=== PATIENT | female | born 1995 | race Caucasian/White ===

== ENCOUNTER 2019-07-07 | Emergency (ER) | payer SELFPAY ==
[2019-07-07] MEDS ORDERED: ULTRAM50 M1 PO (19:00)
== END 2019-07-07 19:16 | disposition home or self-care (01) | DRG 563 ==
DX: S93.601A Unspecified sprain of right foot, initial encounter (principal); W22.8XXA Striking against or struck by other objects, initial encounter; Y92.009 Unspecified place in unspecified non-institutional (private) residence as the place of occurrence of the external cause

== ENCOUNTER 2020-04-15 19:27 | Emergency (ER) | payer SELFPAY ==
[~2020-04-15] VITALS: Ht 165.1 cm; Wt 149.0 kg
[~2020-04-15 19:27] MED LIST: ULTRAM50 M1 PO
[2020-04-15] MEDS ORDERED: MEDICAL MARIJUANA (19:55)
[2020-04-15 20:03] LABS: HEMATOCRIT 39.2 % (37.0-47.0); HEMOGLOBIN 12.2 g/dl (12.0-16.0); IMMATURE GRANULOCYTES 0.3 % (0.0-5.0); MEAN CELL VOLUME 87.7 fL CALC (80.0-100.0); MEAN CORPUSCULAR HGB 27.3 pG CALC (26.0-32.0); MEAN CORPUSCULAR HGB CONC 31.1 g/dL CAL (32.0-36.0); NEUT# 5.52 thou/uL (2.00-7.15); RED BLOOD COUNT 4.47 mill/uL (4.20-5.60); RED CELL DISTRI WIDTH 13.2 % (11.5-15.5)
[2020-04-15 20:21] LABS: ALBUMIN 4.1 g/dL (3.2-5.0); ALKALINE PHOSPHATASE 60 u/l (38-126); ANION GAP 12 (6-22 (CALC)); BILIRUBIN, TOTAL 0.5 mg/dL (0.0-1.4); BUN 8 mg/dL (7-17); BUN/CREATININE RATIO 10 (12-20 (CALC)); CARBON DIOXIDE 27 mmol/l (22-30); CHLORIDE 106 mmol/l (95-108); CREATININE 0.9 mg/dL (0.5-1.0); GFR > 60 ML/MIN (>=60 (CALC)); GFR FOR AFR.AMER. > 60 ML/MIN (>=60 (CALC)); SGOT/AST 16 u/l (14-36); SODIUM 141 mmol/l (137-146); TOTAL PROTEIN 7.4 g/dL (6.3-8.2)
[2020-04-15 21:00] VITALS: BP 112/68
[2020-04-15] MEDS ORDERED: INDOMETHACIN75 MG PO (21:03)
[2020-04-15] MEDS ORDERED: COLCHICINE0.6 M2 PO (21:03)
== END 2020-04-15 21:14 | disposition home or self-care (01) | DRG 554 ==
LOC: ED 19:27
PROVIDERS: Family Medicine
DX: M10.071 Idiopathic gout, right ankle and foot (principal)

== ENCOUNTER 2020-06-24 17:13 | Emergency (ER) | payer SELFPAY ==
[~2020-06-24] VITALS: Ht 165.1 cm; Wt 120.0 kg
[~2020-06-24 17:13] MED LIST changes: +COLCHICINE0.6 M2 PO; +INDOMETHACIN75 MG PO; +MEDICAL MARIJUANA
[2020-06-24 20:17] LABS: HEMATOCRIT 39.9 % (37.0-47.0); HEMOGLOBIN 12.9 g/dl (12.0-16.0); IMMATURE GRANULOCYTES 0.5 % (0.0-5.0); MEAN CELL VOLUME 85.1 fL CALC (80.0-100.0); MEAN CORPUSCULAR HGB 27.5 pG CALC (26.0-32.0); MEAN CORPUSCULAR HGB CONC 32.3 g/dL CAL (32.0-36.0); NEUT# 6.14 thou/uL (2.00-7.15); RED BLOOD COUNT 4.69 mill/uL (4.20-5.60); RED CELL DISTRI WIDTH 14.5 % (11.5-15.5)
[2020-06-24 20:37] LABS: ALBUMIN 4.6 g/dL (3.2-5.0); ALKALINE PHOSPHATASE 64 u/l (38-126); AMYLASE 56 u/l (30-110); BUN 7 mg/dL (7-17); BUN/CREATININE RATIO 8 (12-20 (CALC)); CARBON DIOXIDE 30 mmol/l (22-30); CHLORIDE 102 mmol/l (95-108); CREATININE 0.9 mg/dL (0.5-1.0); GFR > 60 ML/MIN (>=60 (CALC)); GFR FOR AFR.AMER. > 60 ML/MIN (>=60 (CALC)); LIPASE 95 u/l (23-300); SODIUM 141 mmol/l (137-146); TOTAL PROTEIN 8.3 g/dL (6.3-8.2)
[2020-06-24 20:39] LABS: ANION GAP 12 (6-22 (CALC)); BILIRUBIN, TOTAL 0.9 mg/dL (0.0-1.4); POTASSIUM 2.8 mmol/l (3.5-5.1); SGOT/AST 94 u/l (14-36)
[2020-06-24] MEDS ORDERED: PHENERGAN25 MG/TAB PO (23:47)
[2020-06-24] MEDS ORDERED: PROTONIX40 MG PO (23:47)
[2020-06-25 00:45] VITALS: BP 150/86
== END 2020-06-25 00:55 | disposition home or self-care (01) | DRG 392 ==
LOC: ED 17:13
PROVIDERS: Emergency Medicine
DX: R10.13 Epigastric pain (principal); R11.2 Nausea with vomiting, unspecified; K50.90 Crohn's disease, unspecified, without complications; M10.9 Gout, unspecified
CPT/HCPCS: S0164

== ENCOUNTER 2020-12-22 11:12 | Emergency (ER) | payer SELFPAY ==
[~2020-12-22] VITALS: Ht 165.1 cm; Wt 131.0 kg
[~2020-12-22 11:12] MED LIST changes: +PHENERGAN25 MG/TAB PO; +PROTONIX40 MG PO
[2020-12-22 12:49] LABS: IMMATURE GRANULOCYTES 0.1 % (0.0-5.0); MEAN CELL VOLUME 89.8 fL CALC (80.0-100.0); MEAN CORPUSCULAR HGB 28.4 pG CALC (26.0-32.0); MEAN CORPUSCULAR HGB CONC 31.6 g/dL CAL (32.0-36.0); NEUT# 5.14 thou/uL (2.00-7.15); RED BLOOD COUNT 4.23 mill/uL (4.20-5.60); RED CELL DISTRI WIDTH 13.7 % (11.5-15.5)
[2020-12-22 13:03] LABS: ALKALINE PHOSPHATASE 50 u/l (38-126); BUN 5 mg/dL (7-17); BUN/CREATININE RATIO 8 (12-20 (CALC)); CARBON DIOXIDE 27 mmol/l (22-30); CHLORIDE 106 mmol/l (95-108); CREATININE 0.7 mg/dL (0.5-1.0); GFR > 60 ML/MIN (>=60 (CALC)); GFR FOR AFR.AMER. > 60 ML/MIN (>=60 (CALC)); LIPASE 63 u/l (23-300); SODIUM 140 mmol/l (137-146); TOTAL PROTEIN 7.2 g/dL (6.3-8.2)
[2020-12-22 13:04] LABS: ANION GAP 11 (6-22 (CALC)); BILIRUBIN, TOTAL 0.4 mg/dL (0.0-1.4); POTASSIUM 3.7 mmol/l (3.5-5.1); SGOT/AST 23 u/l (14-36)
[2020-12-22] MEDS ORDERED: CARAFATE1 GM/10 M1 PO (14:52)
[2020-12-22] MEDS ORDERED: OMEPRAZOLE DR40 MG PO (14:52)
[2020-12-22 15:02] VITALS: BP 131/79
== END 2020-12-22 15:03 | disposition home or self-care (01) | DRG 392 ==
LOC: ED 11:12
PROVIDERS: Family Medicine
DX: K21.9 Gastro-esophageal reflux disease without esophagitis (principal); K50.90 Crohn's disease, unspecified, without complications; E66.9 Obesity, unspecified; M10.9 Gout, unspecified; Z20.822 Contact with and (suspected) exposure to COVID-19

== ENCOUNTER 2021-04-21 12:36 | Emergency (ER) | payer SELFPAY ==
[~2021-04-21] VITALS: Ht 165.1 cm; Wt 115.0 kg
[~2021-04-21 12:36] MED LIST changes: +CARAFATE1 GM/10 M1 PO; +OMEPRAZOLE DR40 MG PO
[2021-04-21 17:15] LABS: HEMATOCRIT 38.1 % (37.0-47.0); HEMOGLOBIN 12.3 g/dl (12.0-16.0); IMMATURE GRANULOCYTES 0.2 % (0.0-5.0); MEAN CELL VOLUME 90.7 fL CALC (80.0-100.0); MEAN CORPUSCULAR HGB 29.3 pG CALC (26.0-32.0); MEAN CORPUSCULAR HGB CONC 32.3 g/dL CAL (32.0-36.0); NEUT# 9.12 thou/uL (2.00-7.15); RED BLOOD COUNT 4.2 mill/uL (4.20-5.60); RED CELL DISTRI WIDTH 13.2 % (11.5-15.5)
[2021-04-21 17:24] LABS: ALBUMIN 4.4 g/dL (3.2-5.0); ALKALINE PHOSPHATASE 61 u/l (38-126); AMYLASE 65 u/l (30-110); ANION GAP 17 (6-22 (CALC)); BUN 8 mg/dL (7-17); BUN/CREATININE RATIO 12 (12-20 (CALC)); CARBON DIOXIDE 23 mmol/l (22-30); CHLORIDE 106 mmol/l (95-108); CREATININE 0.7 mg/dL (0.5-1.0); GFR > 60 ML/MIN (>=60 (CALC)); GFR FOR AFR.AMER. > 60 ML/MIN (>=60 (CALC)); LIPASE 54 u/l (23-300); POTASSIUM 3.8 mmol/l (3.5-5.1); SGOT/AST 19 u/l (14-36); SODIUM 143 mmol/l (137-146); TOTAL PROTEIN 8.2 g/dL (6.3-8.2)
[2021-04-21 17:25] LABS: BILIRUBIN, TOTAL 0.7 mg/dL (0.0-1.4)
[2021-04-21 17:26] LABS: HCG SERUM/URINE (NEG/POS) NEGATIVE (NEGATIVE)
[2021-04-21 17:35] LABS: MYOGLOBIN 27 ng/mL (0 - 62)
[2021-04-21] MEDS ORDERED: ULTRAM50 M1 PO (19:29)
[2021-04-21] MEDS ORDERED: PREVACID30 M3 PO (19:29)
[2021-04-21] MEDS ORDERED: ONDANSETRON4 MG PO (19:29)
[2021-04-21 19:54] VITALS: BP 134/84
== END 2021-04-21 19:50 | disposition home or self-care (01) | DRG 387 ==
LOC: ED 12:36
PROVIDERS: Emergency Medicine
DX: K50.90 Crohn's disease, unspecified, without complications (principal); K29.70 Gastritis, unspecified, without bleeding; M10.9 Gout, unspecified; Z20.822 Contact with and (suspected) exposure to COVID-19
CPT/HCPCS: Q9967; S0164

== ENCOUNTER 2021-04-24 20:52 | Observation (INO) | payer SELFPAY ==
[~2021-04-24] VITALS: Ht 12.7 cm; Wt 108.0 kg
[~2021-04-24 20:52] MED LIST changes: +ONDANSETRON4 MG PO; +PREVACID30 M3 PO
[2021-04-24 21:38] LABS: HEMATOCRIT 37.1 % (37.0-47.0); HEMOGLOBIN 12.2 g/dl (12.0-16.0); IMMATURE GRANULOCYTES 0.1 % (0.0-5.0); MEAN CELL VOLUME 89.2 fL CALC (80.0-100.0); MEAN CORPUSCULAR HGB 29.3 pG CALC (26.0-32.0); MEAN CORPUSCULAR HGB CONC 32.9 g/dL CAL (32.0-36.0); NEUT# 7.71 thou/uL (2.00-7.15); RED BLOOD COUNT 4.16 mill/uL (4.20-5.60); RED CELL DISTRI WIDTH 13.2 % (11.5-15.5)
[2021-04-24 21:45] LABS: ALKALINE PHOSPHATASE 53 u/l (38-126); AMYLASE 54 u/l (30-110); ANION GAP 13 (6-22 (CALC)); BILIRUBIN, TOTAL 0.9 mg/dL (0.0-1.4); BUN 6 mg/dL (7-17); BUN/CREATININE RATIO 7 (12-20 (CALC)); CARBON DIOXIDE 26 mmol/l (22-30); CHLORIDE 104 mmol/l (95-108); GFR > 60 ML/MIN (>=60 (CALC)); GFR FOR AFR.AMER. > 60 ML/MIN (>=60 (CALC)); LIPASE 65 u/l (23-300); POTASSIUM 2.9 mmol/l (3.5-5.1); SGOT/AST 55 u/l (14-36); SODIUM 140 mmol/l (137-146); TOTAL PROTEIN 7.4 g/dL (6.3-8.2)
[2021-04-24 22:32] LABS: URINE BLOOD DIPSTICK NEGATIVE (NEGATIVE); URINE COLOR YELLOW; URINE GLUCOSE - DIPSTICK NEGATIVE (NEGATIVE); URINE KETONE >=80 mg/dL (NEGATIVE); URINE LEUK ESTERASE NEGATIVE (NEGATIVE); URINE PH 5.5 (4.5-8.0); URINE PROTEIN - DIPSTICK NEGATIVE (NEG-TRACE); URINE SPECIFIC GRAVITY 1.025; URINE UROBILINOGEN - DIPSTICK 0.2 E.U./dL (0.2)
[2021-04-24 22:35] LABS: URINE BILIRUBIN - DIPSTICK SMALL (NEGATIVE); URINE NITRITE - DIPSTICK NEGATIVE (Negative)
[2021-04-25 03:10] VITALS: BP 149/88
[2021-04-25 05:44] LABS: ANION GAP 15 (6-22 (CALC)); BUN 5 mg/dL (7-17); BUN/CREATININE RATIO 6 (12-20 (CALC)); CARBON DIOXIDE 22 mmol/l (22-30); CHLORIDE 107 mmol/l (95-108); CREATININE 0.7 mg/dL (0.5-1.0); GFR > 60 ML/MIN (>=60 (CALC)); GFR FOR AFR.AMER. > 60 ML/MIN (>=60 (CALC)); SODIUM 140 mmol/l (137-146)
[2021-04-25 05:45] LABS: POTASSIUM 3.7 mmol/l (3.5-5.1)
[2021-04-25 06:35] VITALS: BP 139/87
[2021-04-25 10:30] VITALS: BP 148/74
[2021-04-25 15:17] VITALS: BP 129/66
[2021-04-25 20:00] VITALS: BP 143/80
[2021-04-26 04:15] VITALS: BP 138/78
[2021-04-26 06:04] LABS: HEMATOCRIT 35.7 % (37.0-47.0); HEMOGLOBIN 11.6 g/dl (12.0-16.0); MEAN CELL VOLUME 89.7 fL CALC (80.0-100.0); MEAN CORPUSCULAR HGB 29.1 pG CALC (26.0-32.0); MEAN CORPUSCULAR HGB CONC 32.5 g/dL CAL (32.0-36.0); RED BLOOD COUNT 3.98 mill/uL (4.20-5.60); RED CELL DISTRI WIDTH 13.8 % (11.5-15.5)
[2021-04-26 06:31] LABS: BUN 4 mg/dL (7-17); BUN/CREATININE RATIO 7 (12-20 (CALC)); CARBON DIOXIDE 19 mmol/l (22-30); CHLORIDE 111 mmol/l (95-108); CREATININE 0.7 mg/dL (0.5-1.0); GFR > 60 ML/MIN (>=60 (CALC)); GFR FOR AFR.AMER. > 60 ML/MIN (>=60 (CALC)); MAGNESIUM 2.1 mg/dL (1.6-2.3); SODIUM 142 mmol/l (137-146)
[2021-04-26 06:35] LABS: ANION GAP 17 (6-22 (CALC)); POTASSIUM 4.7 mmol/l (3.5-5.1)
[2021-04-26 09:23] VITALS: BP 138/78
[2021-04-26 19:00] VITALS: BP 148/73
[2021-04-27 02:48] VITALS: BP 156/83
[2021-04-27 05:54] LABS: HEMOGLOBIN 11.9 g/dl (12.0-16.0); MEAN CELL VOLUME 93.1 fL CALC (80.0-100.0); MEAN CORPUSCULAR HGB 29.2 pG CALC (26.0-32.0); MEAN CORPUSCULAR HGB CONC 31.3 g/dL CAL (32.0-36.0); RED BLOOD COUNT 4.08 mill/uL (4.20-5.60); RED CELL DISTRI WIDTH 14.3 % (11.5-15.5)
[2021-04-27 06:08] VITALS: BP 150/81
[2021-04-27 06:15] LABS: ANION GAP 15 (6-22 (CALC)); BUN 10 mg/dL (7-17); BUN/CREATININE RATIO 11 (12-20 (CALC)); CARBON DIOXIDE 22 mmol/l (22-30); CHLORIDE 110 mmol/l (95-108); CREATININE 0.9 mg/dL (0.5-1.0); GFR > 60 ML/MIN (>=60 (CALC)); GFR FOR AFR.AMER. > 60 ML/MIN (>=60 (CALC)); MAGNESIUM 2.2 mg/dL (1.6-2.3); SODIUM 142 mmol/l (137-146)
[2021-04-27 06:19] LABS: POTASSIUM 5.2 mmol/l (3.5-5.1)
[2021-04-27 10:13] VITALS: BP 152/83
[2021-04-27 14:14] VITALS: BP 152/83
[2021-04-27 16:08] VITALS: BP 142/83
[2021-04-27 21:00] VITALS: BP 149/79
[2021-04-28 04:00] VITALS: BP 156/89
[2021-04-28 05:45] LABS: HEMOGLOBIN 11.8 g/dl (12.0-16.0); MEAN CELL VOLUME 89.6 fL CALC (80.0-100.0); MEAN CORPUSCULAR HGB 29.4 pG CALC (26.0-32.0); MEAN CORPUSCULAR HGB CONC 32.8 g/dL CAL (32.0-36.0); RED BLOOD COUNT 4.02 mill/uL (4.20-5.60); RED CELL DISTRI WIDTH 13.6 % (11.5-15.5)
[2021-04-28 06:00] LABS: ANION GAP 15 (6-22 (CALC)); BUN 15 mg/dL (7-17); BUN/CREATININE RATIO 18 (12-20 (CALC)); CARBON DIOXIDE 23 mmol/l (22-30); CHLORIDE 106 mmol/l (95-108); CREATININE 0.8 mg/dL (0.5-1.0); GFR > 60 ML/MIN (>=60 (CALC)); GFR FOR AFR.AMER. > 60 ML/MIN (>=60 (CALC)); POTASSIUM 4.8 mmol/l (3.5-5.1); SODIUM 138 mmol/l (137-146)
[2021-04-28 08:47] VITALS: BP 150/76
[2021-04-28 11:14] VITALS: BP 140/65
[2021-04-28 16:24] VITALS: BP 146/74
[2021-04-28 19:00] VITALS: BP 161/93
[2021-04-29 04:00] VITALS: BP 153/76
[2021-04-29 06:03] LABS: HEMATOCRIT 35.3 % (37.0-47.0); HEMOGLOBIN 11.4 g/dl (12.0-16.0); MEAN CELL VOLUME 90.1 fL CALC (80.0-100.0); MEAN CORPUSCULAR HGB 29.1 pG CALC (26.0-32.0); MEAN CORPUSCULAR HGB CONC 32.3 g/dL CAL (32.0-36.0); RED BLOOD COUNT 3.92 mill/uL (4.20-5.60); RED CELL DISTRI WIDTH 13.7 % (11.5-15.5)
[2021-04-29 06:25] LABS: ANION GAP 7 (6-22 (CALC)); BUN 15 mg/dL (7-17); BUN/CREATININE RATIO 21 (12-20 (CALC)); CARBON DIOXIDE 21 mmol/l (22-30); CHLORIDE 115 mmol/l (95-108); CREATININE 0.7 mg/dL (0.5-1.0); GFR > 60 ML/MIN (>=60 (CALC)); GFR FOR AFR.AMER. > 60 ML/MIN (>=60 (CALC)); POTASSIUM 3.3 mmol/l (3.5-5.1); SODIUM 140 mmol/l (137-146)
[2021-04-29 08:00] VITALS: BP 153/76
[2021-04-29] MEDS ORDERED: ONDANSETRON4 MG PO (11:56)
[2021-04-29] MEDS ORDERED: HYDROCO/APAP1 T10 PO (11:57)
[2021-04-29 16:05] VITALS: BP 144/89
== END 2021-04-29 17:35 | disposition home or self-care (01) | DRG 392 ==
LOC: ED 20:52 → ICU 04-25 01:05 → MS2 04-27 20:30
PROVIDERS: Family Medicine; Hospitalist; Nurse Practitioner; ADMIT Internal Medicine; ATTEND Internal Medicine
PROC: 05HB33Z Insertion of Infusion Device into Right Basilic Vein, Percutaneous Approach (ICD-10-PCS; principal; 2021-04-27)
DX: K29.70 Gastritis, unspecified, without bleeding (principal); E87.6 Hypokalemia; Z20.822 Contact with and (suspected) exposure to COVID-19
CPT/HCPCS: G0378; J1650; Q9967

== ENCOUNTER 2021-07-18 11:38 | Emergency (ER) | payer SELFPAY ==
[~2021-07-18] VITALS: Ht 165.1 cm; Wt 117.9 kg
[~2021-07-18 11:38] MED LIST changes: +HYDROCO/APAP1 T10 PO
[2021-07-18 12:42] LABS: IMMATURE GRANULOCYTES 0.3 % (0.0-5.0); MEAN CELL VOLUME 93.8 fL CALC (80.0-100.0); MEAN CORPUSCULAR HGB 29.6 pG CALC (26.0-32.0); MEAN CORPUSCULAR HGB CONC 31.6 g/dL CAL (32.0-36.0); NEUT# 8.95 thou/uL (2.00-7.15); RED BLOOD COUNT 4.52 mill/uL (4.20-5.60); RED CELL DISTRI WIDTH 16.5 % (11.5-15.5)
[2021-07-18 12:44] LABS: HEMATOCRIT 42.4 % (37.0-47.0); HEMOGLOBIN 13.4 g/dl (12.0-16.0)
[2021-07-18 13:02] LABS: ALBUMIN 4.8 g/dL (3.2-5.0); ALKALINE PHOSPHATASE 70 u/l (38-126); AMYLASE 47 u/l (30-110); ANION GAP 19 (6-22 (CALC)); BILIRUBIN, TOTAL 0.7 mg/dL (0.0-1.4); BUN 7 mg/dL (7-17); BUN/CREATININE RATIO 11 (12-20 (CALC)); CARBON DIOXIDE 22 mmol/l (22-30); CHLORIDE 105 mmol/l (95-108); CREATININE 0.6 mg/dL (0.5-1.0); GFR > 60 ML/MIN (>=60 (CALC)); GFR FOR AFR.AMER. > 60 ML/MIN (>=60 (CALC)); LIPASE 45 u/l (23-300); POTASSIUM 3.7 mmol/l (3.5-5.1); SGOT/AST 16 u/l (14-36); SODIUM 142 mmol/l (137-146); TOTAL PROTEIN 8.3 g/dL (6.3-8.2)
[2021-07-18 13:24] LABS: URINE BLOOD DIPSTICK NEGATIVE (NEGATIVE); URINE COLOR YELLOW; URINE GLUCOSE - DIPSTICK NEGATIVE (NEGATIVE); URINE KETONE >=80 mg/dL (NEGATIVE); URINE LEUK ESTERASE NEGATIVE (NEGATIVE); URINE PROTEIN - DIPSTICK 30 mg/dL (NEG-TRACE); URINE SPECIFIC GRAVITY >=1.030; URINE UROBILINOGEN - DIPSTICK 0.2 E.U./dL (0.2)
[2021-07-18 13:30] LABS: URINE BILIRUBIN - DIPSTICK SMALL (NEGATIVE); URINE NITRITE - DIPSTICK NEGATIVE (Negative)
[2021-07-18] MEDS ORDERED: DICYCLOMINE10 MG PO (19:29)
[2021-07-18] MEDS ORDERED: PROMETHAZINE HY25 M1 PO (19:29)
[2021-07-18] MEDS ORDERED: REGLAN10 MG PO (19:34)
[2021-07-18 19:36] VITALS: BP 103/47
[2021-07-18 19:37] VITALS: BP 115/65
[2021-07-18 19:40] VITALS: BP 115/67
== END 2021-07-18 19:49 | disposition home or self-care (01) | DRG 392 ==
LOC: ED 11:38
PROVIDERS: Emergency Medicine
DX: R10.9 Unspecified abdominal pain (principal); R11.2 Nausea with vomiting, unspecified; Z87.19 Personal history of other diseases of the digestive system
CPT/HCPCS: Q9967; S0164

== ENCOUNTER 2021-07-19 12:53 | Emergency (ER) | payer SELFPAY ==
[~2021-07-19] VITALS: Ht 165.1 cm; Wt 115.9 kg
[~2021-07-19 12:53] MED LIST changes: +DICYCLOMINE10 MG PO; +PROMETHAZINE HY25 M1 PO; +REGLAN10 MG PO
[2021-07-19 13:27] LABS: HEMATOCRIT 42.8 % (37.0-47.0); IMMATURE GRANULOCYTES 0.2 % (0.0-5.0); MEAN CELL VOLUME 90.3 fL CALC (80.0-100.0); MEAN CORPUSCULAR HGB 29.5 pG CALC (26.0-32.0); MEAN CORPUSCULAR HGB CONC 32.7 g/dL CAL (32.0-36.0); NEUT# 7.31 thou/uL (2.00-7.15); RED BLOOD COUNT 4.74 mill/uL (4.20-5.60)
[2021-07-19 13:37] LABS: ALBUMIN 4.6 g/dL (3.2-5.0); ALKALINE PHOSPHATASE 70 u/l (38-126); ANION GAP 16 (6-22 (CALC)); BILIRUBIN, TOTAL 0.9 mg/dL (0.0-1.4); BUN 6 mg/dL (7-17); BUN/CREATININE RATIO 7 (12-20 (CALC)); CARBON DIOXIDE 23 mmol/l (22-30); CHLORIDE 106 mmol/l (95-108); CREATININE 0.8 mg/dL (0.5-1.0); GFR > 60 ML/MIN (>=60 (CALC)); GFR FOR AFR.AMER. > 60 ML/MIN (>=60 (CALC)); LIPASE 58 u/l (23-300); POTASSIUM 3.2 mmol/l (3.5-5.1); SGOT/AST 28 u/l (14-36); SODIUM 142 mmol/l (137-146); TOTAL PROTEIN 8.6 g/dL (6.3-8.2)
[2021-07-19 15:41] LABS: URINE BLOOD DIPSTICK NEGATIVE (NEGATIVE); URINE COLOR YELLOW; URINE GLUCOSE - DIPSTICK NEGATIVE (NEGATIVE); URINE KETONE >=80 mg/dL (NEGATIVE); URINE LEUK ESTERASE NEGATIVE (NEGATIVE); URINE PROTEIN - DIPSTICK TRACE mg/dL (NEG-TRACE); URINE SPECIFIC GRAVITY >=1.030; URINE UROBILINOGEN - DIPSTICK 0.2 E.U./dL (0.2)
[2021-07-19 15:44] LABS: URINE BILIRUBIN - DIPSTICK MODERATE (NEGATIVE)
[2021-07-19 15:45] LABS: URINE NITRITE - DIPSTICK NEGATIVE (Negative)
[2021-07-19 16:20] VITALS: BP 134/61
== END 2021-07-19 16:20 | disposition home or self-care (01) | DRG 392 ==
LOC: ED 12:53
PROVIDERS: Family Medicine
DX: R10.84 Generalized abdominal pain (principal); K50.90 Crohn's disease, unspecified, without complications; E66.9 Obesity, unspecified; M10.9 Gout, unspecified

== ENCOUNTER 2021-07-27 19:52 | Emergency (ER) | payer SELFPAY ==
[~2021-07-27] VITALS: Ht 165.1 cm; Wt 112.0 kg
[2021-07-27 20:00] VITALS: BP 142/82
[2021-07-27 20:41] LABS: HEMATOCRIT 42.6 % (37.0-47.0); HEMOGLOBIN 14.1 g/dl (12.0-16.0); IMMATURE GRANULOCYTES 0.1 % (0.0-5.0); MEAN CELL VOLUME 89.9 fL CALC (80.0-100.0); MEAN CORPUSCULAR HGB 29.7 pG CALC (26.0-32.0); MEAN CORPUSCULAR HGB CONC 33.1 g/dL CAL (32.0-36.0); NEUT# 7.27 thou/uL (2.00-7.15); RED BLOOD COUNT 4.74 mill/uL (4.20-5.60); RED CELL DISTRI WIDTH 14.2 % (11.5-15.5)
[2021-07-27 21:01] VITALS: BP 125/72
[2021-07-27 21:08] LABS: ALBUMIN 4.3 g/dL (3.2-5.0); ALKALINE PHOSPHATASE 45 u/l (38-126); AMYLASE 48 u/l (30-110); BILIRUBIN, TOTAL 0.8 mg/dL (0.0-1.4); BUN 6 mg/dL (7-17); BUN/CREATININE RATIO 9 (12-20 (CALC)); CHLORIDE 105 mmol/l (95-108); CREATININE 0.7 mg/dL (0.5-1.0); GFR > 60 ML/MIN (>=60 (CALC)); GFR FOR AFR.AMER. > 60 ML/MIN (>=60 (CALC)); LIPASE 57 u/l (23-300); POTASSIUM 3.6 mmol/l (3.5-5.1); SGOT/AST 25 u/l (14-36); SODIUM 143 mmol/l (137-146); TOTAL PROTEIN 7.5 g/dL (6.3-8.2)
[2021-07-27 21:10] LABS: ANION GAP 11 (6-22 (CALC)); CARBON DIOXIDE 31 mmol/l (22-30)
[2021-07-27 23:12] VITALS: BP 148/83
[2021-07-27 23:30] VITALS: BP 130/83
[2021-07-27] MEDS ORDERED: DICYCLOMINE10 MG PO (23:30)
[2021-07-27] MEDS ORDERED: PHENERGAN25 MG RE (23:30)
[2021-07-27 23:31] LABS: URINE BILIRUBIN - DIPSTICK NEGATIVE (NEGATIVE); URINE BLOOD DIPSTICK NEGATIVE (NEGATIVE); URINE COLOR YELLOW; URINE GLUCOSE - DIPSTICK NEGATIVE (NEGATIVE); URINE KETONE NEGATIVE (NEGATIVE); URINE LEUK ESTERASE NEGATIVE (NEGATIVE); URINE PH 6.5 (4.5-8.0); URINE PROTEIN - DIPSTICK NEGATIVE (NEG-TRACE); URINE SPECIFIC GRAVITY <=1.005; URINE UROBILINOGEN - DIPSTICK 0.2 E.U./dL (0.2)
[2021-07-27 23:33] VITALS: BP 130/83
[2021-07-27 23:35] LABS: URINE NITRITE - DIPSTICK NEGATIVE (Negative)
== END 2021-07-27 23:45 | disposition home or self-care (01) | DRG 392 ==
LOC: ED 19:52
PROVIDERS: Family Medicine
DX: R10.31 Right lower quadrant pain (principal); R10.13 Epigastric pain; R10.33 Periumbilical pain; R11.2 Nausea with vomiting, unspecified
CPT/HCPCS: Q9967

== ENCOUNTER 2022-06-02 23:13 | Emergency (ER) | payer SELFPAY ==
[~2022-06-02] VITALS: Ht 165.1 cm; Wt 100.0 kg
[~2022-06-02 23:13] MED LIST changes: +PHENERGAN25 MG RE
[2022-06-03] MEDS ORDERED: BACTRIM DS1 TAB PO (00:36)
[2022-06-03 01:29] VITALS: BP 100/72
== END 2022-06-03 01:45 | disposition home or self-care (01) | DRG 603 ==
LOC: ED 23:13
DX: L03.011 Cellulitis of right finger (principal)

== ENCOUNTER 2022-07-21 06:54 | Emergency (ER) | payer SELFPAY ==
[2022-07-21] VITALS (9 sets, daily range): BP systolic 68–138; BP diastolic 50–69
[~2022-07-21] VITALS: Ht 165.1 cm; Wt 116.6 kg
[~2022-07-21 06:54] MED LIST changes: +BACTRIM DS1 TAB PO
[2022-07-21 07:50] LABS: BASO% 0.4 % (0-3); EOS% 0.6 % (0-8); HEMATOCRIT 40.7 % (37.0-47.0); IMMATURE GRANULOCYTES 0.1 % (0.0-5.0); LYMPH% 27.5 % (15-41); MEAN CELL VOLUME 90.2 fL CALC (80.0-100.0); MEAN CORPUSCULAR HGB 28.8 pG CALC (26.0-32.0); MEAN CORPUSCULAR HGB CONC 31.9 g/dL CAL (32.0-36.0); MONO% 7.4 % (2-13); NEUT# 4.35 thou/uL (2.00-7.15); RED BLOOD COUNT 4.51 mill/uL (4.20-5.60); RED CELL DISTRI WIDTH 13.4 % (11.5-15.5)
[2022-07-21 08:09] LABS: INTERNATIONAL NORMALIZED RATIO 1.1 RATIO (0.7-1.3); PROTHROMBIN TIME 10.8 SECONDS (9.0-12.5)
[2022-07-21 08:11] LABS: ALBUMIN 4.2 g/dL (3.2-5.0); ALKALINE PHOSPHATASE 53 u/l (38-126); ANION GAP 10 (6-22 (CALC)); BUN 11 mg/dL (7-17); BUN/CREATININE RATIO 13 (12-20 (CALC)); CARBON DIOXIDE 26 mmol/l (22-30); CHLORIDE 106 mmol/l (95-108); CREATININE 0.8 mg/dL (0.5-1.0); GFR FOR AFR.AMER. > 60 ML/MIN (>=60 (CALC)); GFR OTHER RACES > 60 ML/MIN (>=60 (CALC)); POTASSIUM 3.9 mmol/l (3.5-5.1); SGOT/AST 25 u/l (14-36); SODIUM 138 mmol/l (137-146); TOTAL PROTEIN 7.5 g/dL (6.3-8.2)
[2022-07-21 08:25] LABS: BILIRUBIN, TOTAL 1.2 mg/dL (0.02-1.3)
[2022-07-21 09:08] LABS: URINE BILIRUBIN - DIPSTICK NEGATIVE (NEGATIVE); URINE BLOOD DIPSTICK NEGATIVE (NEGATIVE); URINE COLOR YELLOW; URINE GLUCOSE - DIPSTICK NEGATIVE (NEGATIVE); URINE KETONE NEGATIVE (NEGATIVE); URINE LEUK ESTERASE NEGATIVE (NEGATIVE); URINE PROTEIN - DIPSTICK NEGATIVE (NEG-TRACE); URINE UROBILINOGEN - DIPSTICK 0.2 E.U./dL (0.2)
[2022-07-21 09:11] LABS: URINE NITRITE - DIPSTICK NEGATIVE (Negative)
== END 2022-07-21 10:40 | disposition left against medical advice (07) | DRG 93 ==
LOC: ED 06:54
PROVIDERS: Family Medicine
DX: R29.810 Facial weakness (principal); R20.0 Anesthesia of skin; R20.2 Paresthesia of skin; F41.9 Anxiety disorder, unspecified; F32.A Depression, unspecified; E66.9 Obesity, unspecified; Z53.29 Procedure and treatment not carried out because of patient's decision for other reasons
CPT/HCPCS: Q9967

== ENCOUNTER 2022-09-19 12:11 | Emergency (ER) | payer MEDICAID ==
[~2022-09-19] VITALS: Ht 165.1 cm; Wt 120.0 kg
[2022-09-19] VITALS (8 sets, daily range): BP systolic 88–123; BP diastolic 48–81
[2022-09-19] MEDS ORDERED: PRENATAL1 TA1 (12:20)
[2022-09-19 13:10] LABS: BASO% 0.2 % (0-3); EOS% 0.6 % (0-8); HEMATOCRIT 35.9 % (37.0-47.0); HEMOGLOBIN 11.7 g/dl (12.0-16.0); IMMATURE GRANULOCYTES 0.1 % (0.0-5.0); LYMPH% 14.6 % (15-41); MEAN CELL VOLUME 91.3 fL CALC (80.0-100.0); MEAN CORPUSCULAR HGB 29.8 pG CALC (26.0-32.0); MEAN CORPUSCULAR HGB CONC 32.6 g/dL CAL (32.0-36.0); MONO% 5.1 % (2-13); NEUT# 8.19 thou/uL (2.00-7.15); NEUT% 79.4 % (42-76); RED BLOOD COUNT 3.93 mill/uL (4.20-5.60); RED CELL DISTRI WIDTH 13.6 % (11.5-15.5)
[2022-09-19 13:28] LABS: ALBUMIN 3.5 g/dL (3.2-5.0); ALKALINE PHOSPHATASE 53 u/l (38-126); ANION GAP 11 (6-22 (CALC)); BUN 9 mg/dL (7-17); BUN/CREATININE RATIO 17 (12-20 (CALC)); CARBON DIOXIDE 22 mmol/l (22-30); CHLORIDE 112 mmol/l (95-108); CREATININE 0.6 mg/dL (0.5-1.0); GFR FOR AFR.AMER. > 60 ML/MIN (>=60 (CALC)); GFR OTHER RACES > 60 ML/MIN (>=60 (CALC)); SGOT/AST 18 u/l (14-36); SODIUM 140 mmol/l (137-146); TOTAL PROTEIN 6.2 g/dL (6.3-8.2)
[2022-09-19 13:36] LABS: BILIRUBIN, TOTAL 0.3 mg/dL (0.02-1.3)
[2022-09-19 13:45] LABS: BETA-HCG, QUANT(RESULT NUMBER) 2156 mIU/mL
[2022-09-19] MEDS ORDERED: IBUPROFEN600 MG PO (14:26)
[2022-09-19] MEDS ORDERED: HYDROCO/APAP1 TA9 PO (14:26)
== END 2022-09-19 15:29 | disposition home or self-care (01) ==
LOC: ED 12:11
PROVIDERS: Family Medicine
DX: O02.1 Missed abortion (principal); F17.210 Nicotine dependence, cigarettes, uncomplicated

== ENCOUNTER 2023-11-08 12:49 | Emergency (ER) | payer MEDICAID ==
[~2023-11-08] VITALS: Ht 162.6 cm; Wt 104.3 kg
[2023-11-08] VITALS (14 sets, daily range): BP systolic 109–132; BP diastolic 58–89
[~2023-11-08 12:49] MED LIST changes: +DICYCLOMINE HYD10 MG PO; +HYDROCO/APAP1 TA9 PO; +IBUPROFEN600 MG PO; +NAPROXEN500 MG PO; +PREDNISONE20 MG PO; +PRENATAL1 TA1; +PROCHLORPER25 MG RE; +ZOFRAN4 MG/TAB PO
[2023-11-08] MEDS ORDERED: DEXAMETHASONE SOD. PHOSPHATE 10 MG/ML VIAL IM ONE (12:55)
[2023-11-08] MEDS ORDERED: DEXAMETHASONE SOD. PHOSPHATE 10 MG/ML VIAL IV ONE (13:00)
[2023-11-08] MEDS ORDERED: SODIUM CHLORIDE 0.9% 1,000 ML IV ONE (13:05)
[2023-11-08] MEDS ORDERED: Levofloxacin 750 mg Premix 150 ML IV ONE (13:05)
[2023-11-08] MEDS ORDERED: CLINDAMYCIN PHOSPHATE 50 ML IV ONE (13:05)
[2023-11-08 13:20] LABS: BASO% 0.2 % (0-3); EOS% 0.5 % (0-8); HEMATOCRIT 42.9 % (37.0-47.0); IMMATURE GRANULOCYTES 0.1 % (0.0-5.0); LYMPH% 13.1 % (15-41); MEAN CELL VOLUME 92.9 fL CALC (80.0-100.0); MEAN CORPUSCULAR HGB 30.3 pG CALC (26.0-32.0); MEAN CORPUSCULAR HGB CONC 32.6 g/dL CAL (32.0-36.0); NEUT# 10.01 thou/uL (2.00-7.15); NEUT% 79.1 % (42-76); RED BLOOD COUNT 4.62 mill/uL (4.20-5.60)
[2023-11-08 13:29] LABS: ALBUMIN 4.7 g/dL (3.2-5.0); CREATININE 0.8 mg/dL (0.5-1.0); TOTAL PROTEIN 8.4 g/dL (6.3-8.2)
[2023-11-08 13:31] LABS: BILIRUBIN, TOTAL 1.3 mg/dL (0.02-1.3)
[2023-11-08] MEDS ORDERED: MORPHINE SULFATE 4 MG/ML VIAL IV ONE (13:45)
[2023-11-08] MEDS ORDERED: KETOROLAC TROMETHAMINE 30 MG/ML SDV IV ONE (13:45)
[2023-11-08] MEDS ORDERED: LEVOFLOXACIN750 MG PO (16:10)
[2023-11-08] MEDS ORDERED: CLINDAMYCIN HY150 MG PO (16:10)
== END 2023-11-08 17:15 | disposition home or self-care (01) ==
LOC: ED 12:49
PROVIDERS: Nurse Practitioner
DX: J36 Peritonsillar abscess (principal); F17.200 Nicotine dependence, unspecified, uncomplicated; Z20.822 Contact with and (suspected) exposure to COVID-19
CPT/HCPCS: Q9967

== ENCOUNTER 2024-03-21 12:15 | Emergency (ER) | payer MEDICAID ==
[~2024-03-21] VITALS: Ht 162.6 cm; Wt 94.0 kg
[2024-03-21] VITALS (14 sets, daily range): BP systolic 94–133; BP diastolic 48–86
[~2024-03-21 12:15] MED LIST changes: +CLINDAMYCIN HY150 MG PO; +LEVOFLOXACIN750 MG PO
[2024-03-21] MEDS ORDERED: Pantoprazole Sodium 40 MG VIAL (Protonix) IV STA (13:40)
[2024-03-21] MEDS ORDERED: SODIUM CHLORIDE 0.9% 1,000 ML IV STA (13:40)
[2024-03-21] MEDS ORDERED: PROMETHAZINE HCL 25 MG/ML AMP IV STA (13:40)
[2024-03-21 13:52] LABS: BASO% 0.4 % (0-3); EOS% 0.1 % (0-8); HEMATOCRIT 47.9 % (37.0-47.0); HEMOGLOBIN 15.8 g/dl (12.0-16.0); IMMATURE GRANULOCYTES 0.5 % (0.0-5.0); LYMPH% 13.9 % (15-41); MEAN CORPUSCULAR HGB 30.7 pG CALC (26.0-32.0); MONO% 5.3 % (2-13); NEUT# 8.83 thou/uL (2.00-7.15); NEUT% 79.8 % (42-76); RED BLOOD COUNT 5.15 mill/uL (4.20-5.60); RED CELL DISTRI WIDTH 12.4 % (11.5-15.5)
[2024-03-21 13:53] LABS: URINE BLOOD DIPSTICK Trace-lysed (NEGATIVE); URINE GLUCOSE - DIPSTICK Negative (NEGATIVE); URINE KETONE >=160 mg/dL (NEGATIVE); URINE NITRITE - DIPSTICK Negative (Negative); URINE PH 5.5 (4.5-8.0); URINE PROTEIN - DIPSTICK 30 mg/dL (NEG-TRACE)
[2024-03-21] MEDS ORDERED: LACTATED RINGER'S 1,000 ML IV ONE (13:55)
[2024-03-21 14:00] LABS: URINE COLOR Yellow; URINE LEUK ESTERASE Moderate (NEGATIVE)
[2024-03-21 14:06] LABS: URINE BACTERIA FEW hpf; URINE EPITHELIAL CELLS MANY EPI/hpf (0-FEW); URINE RBC 0-2 RBC/hpf (0-5)
[2024-03-21 14:08] LABS: ALBUMIN 5.2 g/dL (3.2-5.0); CREATININE 0.8 mg/dL (0.5-1.0); POTASSIUM 4.5 mmol/l (3.5-5.1)
[2024-03-21] MEDS ORDERED: HALOPERIDOL LACTATE 5 MG/ML SDV IV ONE (14:35)
[2024-03-21] MEDS ORDERED: MORPHINE SULFATE 4 MG/ML VIAL IV STA (15:07)
[2024-03-21] MEDS ORDERED: HALDOL5 M1 PO (16:31)
[2024-03-21] MEDS ORDERED: PHENERGAN25 MG RE (16:31)
[2024-03-21] MEDS ORDERED: BACTRIM DS1 TAB PO (16:55)
== END 2024-03-21 16:52 | disposition home or self-care (01) ==
LOC: ED 12:15
PROVIDERS: Nurse Practitioner
DX: R11.2 Nausea with vomiting, unspecified (principal); F12.10 Cannabis abuse, uncomplicated
CPT/HCPCS: J1630; J2470; J2550; Q9967